=== PATIENT | female | born 2000 | race Caucasian/White ===

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

== ENCOUNTER 2020-08-03 21:48 | Emergency (ER) | payer OTHER, SELFPAY ==
[2020-08-03 21:49] VITALS: BP 132/77; PULSE 77; RESP 16; TEMP 36.6; O2SAT 98; BMI 37.8
--- NOTE | 2020-08-03 22:05 | RAD_ITS ---
STUDY: X-RAY - RIGHT HAND, ATTENTION FIRST FINGER REASON FOR EXAM: Female, 19 years old. TRAUMA -- THUMB TECHNIQUE: 3 view(s) of the finger were obtained. COMPARISON: Right hand x-ray dated December 25, 2013 FINDINGS: A small horizontal hairline fractures present through the tip of the distal phalanx of the thumb without displacement. Mild soft tissue swelling surrounds this region. Normal metacarpal head. Normal metacarpophalangeal joint. Normal proximal phalanx. Normal middle phalanx. Normal proximal interphalangeal joint. Normal distal interphalangeal joint. RAD/Finger(s) Min 2 Views IMPRESSION: Small hairline fracture through the tip of the distal phalanx of the thumb Electronically Signed: Chuck Schaeffer MD at 22:51 EDT , Service support ,
--- NOTE | 2020-08-03 22:48 | EDS_ITS ---
HPI History of Present Illness Chief Complaint: Wound Informant: patient Narrative Narrative: Patient is a 19-year-old previous healthy female who presents to the emergency department for right thumb injury/pain. She states that she shut it in a car door this past Monday. She did crack the nail. She has been having pain with putting any pressure on the thumb. No significant pain with movement. She denies any loss of sensation. No active bleeding or discharge present. She denies any systemic symptoms including any fever/chills or nausea/vomiting. No other injury noted. PFSH PFSH Home Medications cyclobenzaprine 10 mg PO TID PRN #14 tablet 11/09/16 [Rx Last Taken Unknown] Allergy/AdvReac Type Severity Reaction Status Date / Time No Known Allergies Allergy Verified 11/08/16 20:39 Social History Smoking Status: Never smoker ROS ROS ED Constitutional Constitutional ED: Denies chills or fever(s) ENT ENT ED: Denies epistaxis Cardiovascular Cardiovascular: Denies chest pain Respiratory/Chest Respiratory/Chest: Denies cough or dyspnea Gastrointestinal Gastrointestinal: Denies abdominal pain, nausea or vomiting Musculoskeletal Musculoskeletal: Denies back pain or neck pain Integumentary Denies rash Neurologic Neurologic: Denies dizziness, headache(s) or weakness EXAM Physical Exam Const Vital Signs: 08/03/20 21:49 08/03/20 23:54 Temperature 98 F Temperature Source Temporal Pulse Rate 77 Respiratory Rate 16 16 Blood Pressure 132/77 H Blood Pressure Mean 95 Pulse Ox 98 Oxygen Delivery Method Room Air Positive well nourished and well developed General Appearance ED: well developed and NAD HEENT Reports normocephalic, head/scalp atraumatic and moist mucous membranes Eyes PERRL and EOMs intact bilaterally Neck supple General: Negative for tenderness Resp normal respiratory effort and clear to auscultation bilaterally Auscultation: Negative for rales, rhonchi or wheezes Cardio regular rate, regular rhythm and no murmurs Extremity Extremity Narrative: Right distal tip of thumb tender to palpation. There is a crack nursing home through the nail extending horizontally. Nailbed and matrix is unaffected. No underlying hematoma. Patient has full range of motion. No overlying skin changes. General Extremety ED: Negative for edema General Extremity: Negative for edema Neuro no sensory deficits noted Sensorium / Orientation: alert Motor Exam: strength 5/5 throughout Psych mental status grossly normal Skin no rashes or lesions noted MDM MDM MDM Narrative Medical decision making narrative: Patient presents to the emergency department for right thumb injury. It has been 4 days since the injury. She has has pain in the right thumb. X-ray was obtained. There is a nail laceration extending nursing home through the nail. X-ray did show a hairline fracture of the distal thumb. Patient's thumb was placed in splint. She is to follow-up with her PCP. Return precautions are reviewed. Otherwise symptomatic treatment. She understands and is agreeable this plan. All questions were answered. Radiography Diagnostic Testing: Radiology Impression Finger X-Ray 08/03/20 22:05 IMPRESSION: Small hairline fracture through the tip of the distal phalanx of the thumb Electronically Signed: Chuck Schaeffer MD at 22:51 EDT , Service support , Discharge Plan Triage Chief Complaint: Wound ED Provider: Maxime Inman Dx/Rx/DC Orders Clinical Impression: Thumb fracture, Injury of nail Instructions: ED Fracture, Finger, Closed Prescriptions: No Action cyclobenzaprine 10 MG tablet 10 mg PO TID PRN (Reason: Muscle Spasm) Qty: 14 RF: 0 Primary Care Provider: Pauline Nazario Referrals: Pauline Nazario MD [Primary Care Provider] - 1 Week Disposition Disposition: Home, self care Discharge Date/Time: 08/03/20 23:54
[2020-08-03 23:54] VITALS: RESP 16
== END 2020-08-03 23:54 | disposition home or self-care (01) ==
PROVIDERS: Emergency Provider Emergency Medicine; PCP Pediatrics
DX: S62.524A Nondisplaced fracture of distal phalanx of right thumb, initial encounter for closed fracture (principal); S61.111A Laceration without foreign body of right thumb with damage to nail, initial encounter; W23.0XXA Caught, crushed, jammed, or pinched between moving objects, initial encounter; Y93.9 Activity, unspecified; Y92.9 Unspecified place or not applicable; Y99.9 Unspecified external cause status
CPT/HCPCS: 73140; 99282